=== PATIENT | female | born 1990 | race American Indian/Alaskan Native ===

== ENCOUNTER 2017-10-08 18:03 | Inpatient (IN) | payer MEDICAID ==
[2017-10-08] MEDS ORDERED: Lactated Ringers 500 ML IV ONE (18:26)
[2017-10-08] MEDS ORDERED: Carboprost Tromethamine 250 MCG/1 ML Amp IM PRN (18:26)
[2017-10-08] MEDS ORDERED: Methylergonovine 0.2 MG/1 ML Amp IM PRN (18:26)
[2017-10-08] MEDS ORDERED: Sodium Chloride 0.9% 10 ML Syringe FLUSH PRN (18:26)
[2017-10-08] MEDS ORDERED: Tranexamic Acid 1,000 MG in Sodium Chloride 0.9% 100 ML IV PRN (18:26)
[2017-10-08] MEDS ORDERED: Acetaminophen 325 MG Tab PO PRN ×2 (18:26)
[2017-10-08] MEDS ORDERED: Ondansetron 4 MG/2 ML SDV IV PRN (18:26)
[2017-10-08] MEDS ORDERED: Misoprostol 400 MCG (4 X 100 MCG TAB) RECTAL PRN (18:26)
[2017-10-08] MEDS ORDERED: Lidocaine 1% 30 ML SDV INJECT PRN (18:26)
[2017-10-08] MEDS: Misoprostol 25 MCG (1/4 of 100 MCG) Tab VAG PRN ×2 (19:32→23:58)
[2017-10-08] MEDS ORDERED: Nalbuphine 10 MG/1 ML Vial IM PRN (20:49)
[2017-10-09] MEDS ORDERED: Misoprostol 50 MCG (1/2 of 100 MCG) Tab VAG ONE ×2 (00:32→09:29)
[2017-10-09] MEDS: Misoprostol 50 MCG (1/2 of 100 MCG) Tab VAG PRN ×3 (05:10→22:18)
--- NOTE | 2017-10-09 09:51 | PN ---
DATE: 10/09/2017 SUBJECTIVE: The patient is having some contractions that she feels. The patient has had a headache on the posterior aspect of her head, seems to come and go. OBJECTIVE: heart tones in the 140s. Acceleration is seen. Tocometer does not read much for contractions. Blood pressure 138/67. Vaginal exam reveals her to be 1 cm, 25%. Ballotable vertex suspected. Cytotec 50 mcg placed after discussion with the patient ASSESSMENT AND PLAN: Intrauterine at 38 and 5/7 weeks, confirmed with 16 and 6-week ultrasound with gestational hypertension, GBS negative, G5, P4-0-0- 4, now status post Cytotec x2 with 50 mcg placed as above. We will continue to follow clinically and closely at this point in time. I suspect her headache is a tension-type headache with it in the back of her head, does not appear to be a preeclampsia-type headache. We will follow closely. [facility] /[id number]
--- NOTE | 2017-10-09 09:54 | PN ---
DATE: 10/08/2017 SUBJECTIVE: The patient does not feel much for contractions. OBJECTIVE: heart tones in the 140s range, felt to be reactive and reassuring. Blood pressure last one was 140s over 60s. Tocometer reveals no evidence of contraction. Vaginal exam reveals her to be finger tip, ballotable, 25% effaced, and 25 mcg Cytotec placed after discussion with the patient. Proper consent was obtained prior to the administration of Cytotec. ASSESSMENT: Intrauterine at 38 and 4/7 weeks, confirmed with 16 and 6/7 weeks' ultrasound, with gestational hypertension, group B Streptococcus negative, 5, para 4-0-0-4, who has had a history of gestational hypertension. PLAN: Cytotec as above. We will continue to follow clinically and closely. [facility] /[id number]
--- NOTE | 2017-10-09 10:09 | OBOUT ---
DATE: 10/08/2017 DATE AND TIME OF NST: 10/08/2017 at 1800 hours to 1820 hours. REASON FOR NST: 1. Intrauterine at 38-4/7 weeks. 2. Gestational hypertension. 3. GBS negative. 4. G5, P4-0-0-4, with updated information obtained today. 5. History of gestational hypertension with previous . NST INTERPRETATION: During this time period, the heart tone baseline is approximately 130 to 135 and there are at least two 15 x 15 beats per minute accelerations making this strip reactive. It is also noted to be reassuring. Tocometer reveals potential of 1 contraction. VITAL SIGNS: Blood pressure 137/79, recheck 141/87 and heart rate is between 78 and 81. ASSESSMENT: 1. Nonstress test, reactive and reassuring. 2. Tocometer with occasional contraction, minimally felt by the patient. 3. Gestational hypertension, suspected. The patient has had now 2 elevated blood pressures, 1 in the clinic and 1 here, and review of her records extensively in the past as well as further elicited history today does reveal she has added 2 pregnancies one 07/18/08, delivered male of approximately 40 weeks by spontaneous vaginal delivery in [place] with gestational hypertension. On 10/05/2015, delivered female by spontaneous vaginal delivery around 40 weeks. This would make her 5, para 4-0-0- 4. OBJECTIVE: Extremities: Update in terms of her exam with full h and p scanned in epic does reveal 1 to 2+ pitting edema to mid tibia. Deep tendon reflexes 2 to 3/4 bilaterally and symmetric in lower extremities. Psychiatric: Mood and affect are congruent. Judgment and insight intact. Skin: Without any cyanosis, clubbing, or jaundice. LABORATORY DATA: Preeclampsia/HELLP labs were felt to be within normal limits at the clinic. PLAN: I did discuss with the patient with gestational hypertension, recommendation to proceed with induction of labor. I did discuss with her using Cytotec. I did discuss risks, benefits, alternatives, and complications of this. Verbal and written consent obtained. Questions were answered. We will proceed with Cytotec induction of labor when able, and staff is available for this. This was discussed with the patient in detail. She understands and agrees. Also, I did discuss with her that she is to notify us if she has any severe headaches, visual changes, or upper abdominal pain. [facility] /[id number] MTDD
--- NOTE | 2017-10-09 11:22 | PN ---
DATE: 10/09/2017 SUBJECTIVE: The patient denies any headaches, visual changes, or upper abdominal pain. She has had a few occasional strong contractions. No other ones seem to be bothering her too much. OBJECTIVE: Vital Signs: Blood pressure 141/68, heart tones in the 140s to 150s. Abdomen: Tocometer reveals contractions currently at 4 minutes apart. Vaginal exam reveals her to be 1.5 cm, 50% to 60% effaced, -2 station, and vertex suspected. ASSESSMENT AND PLAN: Intrauterine , now at 38 and 5/7 weeks, confirmed with 16 and 6-week ultrasound with gestational hypertension, group B streptococcus negative, G5, P4-0-0-4, with blood pressure currently in the non- severe range. No signs or symptoms of preeclampsia. Most likely, we will proceed with Cytotec. Please see orders for further details. This was discussed with the patient. She understands and agrees. [facility] /[id number]
--- NOTE | 2017-10-09 11:24 | PN ---
DATE: 10/09/2017 SUBJECTIVE: The patient is still feeling her contractions. OBJECTIVE: heart tones in the 140s range. Some accelerations are seen. Tocometer reveals contractions anywhere from 2 to 4 minutes apart. Vaginal exam reveals her 1.5 cm, 50% to 60% effaced, -2 station, vertex suspected, and Cytotec 50 mcg vaginally placed after discussion with the patient. ASSESSMENT AND PLAN: Intrauterine at 38 and 5/7 weeks, complicated by gestational hypertension, group B streptococcus negative, G5, P4-0-0-4, now status post Cytotec x4, counting the dose as above. We will continue to follow clinically and closely thereafter. The patient understands and agrees with the above treatment and plan. [facility] /[id number]
[2017-10-09] MEDS: Oxytocin/Normal Saline 30 UNIT/500 ML BAG IV SCH (13:31)
[2017-10-09] MEDS: Lactated Ringers 1,000 ML IV SCH ×2 (13:32→14:12)
--- NOTE | 2017-10-09 14:56 | PN ---
DATE: 10/09/2017 SUBJECTIVE: The patient's contractions are still bearable. OBJECTIVE: Vaginal exam reveals her to be 1.5 cm, 56% effaced, -2 station, and vertex suspected. ASSESSMENT AND PLAN: Intrauterine , now 38 and 5/7 weeks with gestational hypertension, group B streptococcus negative, G5, P4-0-0-4. She denies any headaches, visual changes, or upper abdominal pain. She has almost had 200 mcg of Cytotec. We will start Pitocin augmentation, start at 2 up by 2 every 30 minutes and follow clinically and closely with monitoring. This was discussed with the patient. She understands and agrees with the above treatment plan. [facility] /[id number] MTDD
[2017-10-09] MEDS ORDERED: hydrOXYzine HCl 25 MG Tab PO ONE (22:41)
[2017-10-10] MEDS: Zolpidem 5 MG Tab PO SCH (00:59)
[2017-10-10] MEDS: Misoprostol 50 MCG (1/2 of 100 MCG) Tab VAG PRN ×2 (02:38→07:13)
--- NOTE | 2017-10-10 13:02 | PN ---
DATE: 10/10/2017 SUBJECTIVE: The patient is resting comfortably. She denies any headaches, visual changes, or upper abdominal pain. OBJECTIVE: Blood pressure 149/68. heart tones have been in the 150s with accelerations . Tocometer reveals contractions every 2 to 5 minutes. Vaginal exam reveals to be 1.5 to 2 cm, 60% effaced, -3 station, vertex suspected and 50 mcg of Cytotec placed vaginally after discussion with the patient. Recheck blood pressure was 155/74. ASSESSMENT: 1. Intrauterine now at 38 and 6/7 weeks, confirmed with 16 and 6/7- week ultrasound. 2. Gestational hypertension. No signs or symptoms of preeclampsia, but as she has been here for 2 nights, we will draw labs in the morning and repeat her PIH panel to make sure that she is not developing preeclampsia. 3. Decrease interval growth. This has been followed closely. It was discussed with her with her most recent ultrasound done on date of admission with final reading back yesterday. 4. Group B Streptococcus negative. 5. G5, P4-0-0-4. 6. History of gestational hypertension with previous . PLAN: The patient is now status post Cytotec x6 with doses of 25 to 50 mcg with 50 mcg was given as above, as well as some Pitocin augmentation that was stopped as there were concerns with monitoring heart tones during that time period. Labs in the later in the morning, we will continue with the Cytotec as above and follow clinically and closely. I did discuss with patient I will be leaving in the morning and Dr. Bah will be covering in my absence. This patient will be signed out to her at that time. The patient understands and agrees with the above treatment plan. [facility] /[id number]
--- NOTE | 2017-10-10 13:08 | PN ---
DATE: 10/10/2017 SUBJECTIVE: The patient slept through the night. She did get her 6th dose of Cytotec around 2:30. She denies any headaches, visual changes, or upper abdominal pain. OBJECTIVE: heart tones in the 135s to 150s range and accelerations noted. Tocometer reveals contractions every 2 to 5 minutes at times. Vital Signs: Blood pressure 141/67, heart rate 82, and temperature 98.6. Vaginal Exam: Reveals her to be 2 cm, 70% effaced, -2 station, and vertex suspected. With placement of 50 mcg of Cytotec, the cervix was 2 cm, and artificial rupture of membranes was done after discussion with the patient yielding copious amounts of clear fluid. LABORATORY INVESTIGATIONS: Labs today: White cell count 9.9, hemoglobin 12, and platelets 237. Urinalysis within normal limits. Urine protein-creatinine ratio pending as well as the rest of the PIH panel. ASSESSMENT: Intrauterine , now 38 and 6/7 weeks confirmed with a 16 and 6-week ultrasound with gestational hypertension being worked up for preeclampsia with decreased interval growth on an ultrasound earlier this week in a group B streptococcus negative, G5, P4-0-0-4, with history of gestational hypertension with previous pregnancies. PLAN: I did discuss with the patient status post artificial rupture of membranes. We will continue to follow clinically and closely. Dr. Bah will be covering in my absence. I will be signing out to her. The patient understands and agrees with the above treatment plan. [facility] /[id number]
--- NOTE | 2017-10-10 13:29 | PN ---
DATE: 10/09/2017 SUBJECTIVE: The patient has been feeling some of her contractions. OBJECTIVE: Pitocin decreased to 8 milliunits as she was having some hyperstimulation/tachy systole. Per nurse, vaginal exam per her reveals 1 cm dilation, -2 station, vertex suspected. Tocometer when reading has revealed contractions every couple of minutes at times. The patient is currently sitting in the rocking chair and difficulty reading on the tocometer. heart tones are audibly heard in the 140s to 150s. One acceleration is seen. ASSESSMENT: Intrauterine at 38 and 5/7 weeks, confirmed with 16 and 6/7 week ultrasound complicated by gestational hypertension, group B streptococcus negative status, G5, P4-0-0-4, with concerns with decreased interval growth. This was discussed with the patient once again today. Ultrasound final report did come back from radiologist from yesterday's ultrasound. Discussed the importance of continuing with induction and she understands and agrees. PLAN: We will try positional changes with the nurse today as well as continue Pitocin augmentation. She has had nearly 200 mcg Cytotec at this point in time. May re-evaluate in the near future. [facility] /[id number]
[2017-10-10] MEDS: Oxytocin/Normal Saline 30 UNIT/500 ML BAG IV SCH ×4 (14:05→20:10)
--- NOTE | 2017-10-10 14:16 | PCM.SN ---
- Free Text/Narrative Note: DOS: 10-10-[address] Roe 27yo @ term 38w6d being induced for transient Gestational HTN without pre-E , and possible growth restriction? AROM this morning by DCW. currently 4cm, vertex well applied. large amount of clear fluid noted with my exam. feeling cxns much more now IUPC placed as pt would like to consider intrathecal. Will start pitocin augmentation after discussion with patient. anticipate likely vaginal delivery. noted from [facility], [facility], and US reviewed. also discussed with Dr. Mccall. further management pending clinical course in labor. [facility]
[2017-10-10] MEDS: Lactated Ringers 1,000 ML IV SCH ×3 (14:45→22:07)
[2017-10-10] MEDS ORDERED: fentaNYL 100 MCG/2 ML SDV ONE (15:20)
[2017-10-10] MEDS ORDERED: Bupivacaine 0.75%/D5W 2 ML Amp ONE (15:20)
[2017-10-10] MEDS ORDERED: EPINEPHrine 1 MG/ML SDV ONE (15:21)
--- NOTE | 2017-10-10 15:57 | PCM.PRNOTE ---
- Free Text/Narrative Note: Requested to provide analgesia to full term patient in severe pain. Upon entering the room, patient is supine in bed complaining of severe abdominal/ pelvic pain and discomfort. Procedure was discussed with patient including adverse outcomes and expectations. Pt consented to analgesia, SAB/IT. Pt placed into a sitting position. Landmarks for SAB/IT were identified and marked. Hands were washed and appropriate PPE was applied. Back was prepped with betadine x3. A sterile, transparent, fenestrated drape was applied. Excess betadine was removed. Using 3 mL of a 1% lidocaine solution, a skin wheel was placed at the L3/L4 interspace. A 24 ga (4 inch) Pencan spinal needle was inserted until positive for CSF. Negative for heme or paresthesias. Injected fentanyl 30 mcg, sufentanil 25 mcg, and 12.75 mg of a 0.75% bupivacaine solution with an epi wash. Pt was placed left lateral position for approximately 20 minutes. There were zero complications or adverse outcomes. Will continue to monitor. Procedure Date & Time: 10/10/17 [id number]
[2017-10-10] MEDS ORDERED: Citric Acid/Sodium Citrate Solution 30 ML Cup PO ONE (17:59)
[2017-10-10] MEDS ORDERED: ceFAZolin 2 GM in Premix Bag 1 BAG IV ONE (17:59)
[2017-10-10] MEDS ORDERED: Oxytocin/Normal Saline 60 UNIT/1,000 ML BAG ONE (18:00)
[2017-10-10] MEDS ORDERED: Acetaminophen/oxyCODONE 325-5 MG Tab PO PRN (20:25)
[2017-10-10] MEDS ORDERED: ePHEDrine 50 MG/ML SDV IVPUSH PRN (20:25)
[2017-10-10] MEDS ORDERED: diphenhydrAMINE 50 MG/ML SDV IVPUSH PRN (20:25)
[2017-10-10] MEDS ORDERED: Naloxone 2 MG/2 ML Syringe IVPUSH PRN (20:25)
[2017-10-10] MEDS ORDERED: Ketorolac 30 MG/ML SDV IVPUSH ONE (21:20)
[2017-10-11] MEDS: Simethicone 80 MG Tab.Chew PO SCH ×5 (00:46→20:12)
[2017-10-11] MEDS: Zolpidem 5 MG Tab PO SCH ×2 (00:46→23:43)
--- NOTE | 2017-10-11 02:14 | OR ---
DATE: 10/10/2017 PROCEDURE PERFORMED: Primary low transverse section. LIEUTENANT BALLISTICS: Eladio Fleming MD ESTIMATED BLOOD LOSS: 600 mL. FLUIDS: 500 mL. URINE OUTPUT: During procedure, 100 mL without hematuria. COMPLICATIONS: None. PREOPERATIVE DIAGNOSES: 1. A 27-year-old 5, para 4-0-0-4 at 38 and 6/7 weeks' gestation with non-reassuring heart tone pattern, arrest of labor, persistent occiput posterior position, unsuccessful induction. 2. Intermittent gestational hypertension. 3. Concern regarding possible decreased intrauterine growth. 4. Group B Streptococcus negative. 5. O positive blood type. 6. Rubella immune. POSTOPERATIVE DIAGNOSES: 1. A 27-year-old 5, now para 5-0-0-5 at 38 and 6/7 weeks' gestation with non-reassuring heart tone pattern, arrest of labor, persistent occiput posterior position, unsuccessful induction. 2. Intermittent gestational hypertension. 3. Concern regarding possible decreased intrauterine growth. 4. Group B Streptococcus negative. 5. O positive blood type. 6. Rubella immune. 7. Confirmation of occiput posterior presentation. 8. Viable female . The weight 6 pounds 10 ounces. scores 8 and 9. FINDINGS: This 27-year-old 5, para 4-0-0-4, was admitted on 10/08/[address] Roe at 38 and 4/7 weeks' gestation for the above reasons as noted and underwent attempt at induction, which was unsuccessful as noted. Please see progress notes for details. She was brought down to the OR and had a Plasencia catheter in place. She was prepped and draped in the usual sterile manner after her spinal anesthesia had been placed. heart tones were checked during her prep intermittently and were found to be reassuring. Her Pitocin had been stopped prior to coming down to the OR. A time-out was performed in my presence. A purple surgical marker was used to dang our intended incision site. A scalpel was used for the skin incision, and this was brought down through the subcutaneous tissue with electrocautery to the fascia, which was divided transversely. Superior and inferior fascial flaps were developed with sharp and blunt dissection. The rectus was identified and divided in the midline. The peritoneum was elevated by Dr. Fleming with Alyssa. Then, the peritoneum was entered bluntly and opened until we had excellent visualization of the lower uterine segment. The extra large Joseph retractor was placed without difficulty. A bladder flap was developed with sharp and blunt dissection. A stab incision was made into the lower uterine segment. This was carried laterally with blunt dissection. The baby was noted to be in an OP presentation, and lips and nose were presenting. With some difficulty, we were able to elevate the vertex up and flex the head and deliver the vertex through the incision. The baby was delivered, and the cord was noted to be wrapped and knotted around the baby's ankles. The cord was doubly clamped and cut, and the baby was carried to the warmer by Dr. Fleming. The baby was suctioned and dried, later found to have scores of 8 and 9 with a weight of 6 pounds 10 ounces. This viable female infant was cared and attended to by nursing staff and did well. A cord blood sample was obtained, and a 3- vessel cord was noted. The placenta was removed from the uterus and inspected later by me and found to be complete, intact with a normal cord insertion and 3- vessel cord as noted. Meanwhile, Dr. Fleming cleared the placenta out of remaining membranes and placental remnants. Placenta appeared to be completely removed, and the uterus was clean and dry. The incision edges were grasped with Rhodes forceps. The left edge was noted to extend slightly down into the sulcus and was bleeding fairly briskly. The incision was closed with a running locking 0 Vicryl suture with good results. Then several hemostatic figure-of- eight and interrupted stitches were placed for hemostasis by both myself and Dr. Fleming. We did note bleeding in the left corner of the incision, and the vessel was grasped with hemostat by Dr. Fleming and subsequently tied off and a [id number] suture placed by him with excellent hemostasis. A second imbricating layer was placed in the uterus by me. Examination of the incision then showed it to be hemostatic. A few small areas that were oozing were electrocauterized. We did place some Surgicel in the left corner as a precaution. We then examined the gutters, and they were dry and cleared of all clots. We then removed the retractor and examined the posterior cul-de-sac and fornix, which were clear of any sign of active bleeding or blood clot. The uterus, ovaries, and tubes appeared within normal limits. The bladder appeared intact, and the incision appeared dry. The Plasencia was noted to continue draining urine throughout the procedure, and there was no sign of obvious hematuria. Muscle and peritoneum layers were brought together with interrupted stitches of leftover suture. Fascia was brought together with running #1 PDS loop suture. The subcutaneous space was examined, and any bleeders were electrocauterized. Skin edges were brought together with rocky. The patient tolerated the procedure well, and there were no intraoperative complications. All counts were correct. The patient was transferred to recovery in excellent condition. [facility] /[id number]
[2017-10-11] MEDS ORDERED: Ketorolac 30 MG/ML SDV IVPUSH SCH (03:00)
[2017-10-11] MEDS: Ketorolac 30 MG/ML SDV IVPUSH SCH ×3 (04:00→15:56)
[2017-10-11] MEDS: Lactated Ringers 1,000 ML IV SCH (06:03)
--- NOTE | 2017-10-11 09:10 | PN ---
DATE: 10/10/2017 REASON FOR NOTE: Need for primary section. FINDINGS: This 27-year-old 5, para 4-0-0-4, currently at 38 and 6/7 weeks' gestation, who was admitted by Dr. Roe 2 days ago for intermittent gestational hypertension. She is known group B strep negative. She was followed by Maternal- Medicine for small for gestational age; however, did have a normal serial growth. He did start Cytotec and continued that for 2 days. Subsequently, she did not go into labor, and he had evaluated her this morning and artificial rupture of membranes was carried out when her cervix was 2 cm dilated and she was not having an active labor pattern. Her preeclampsia labs have been within normal limits. The heart tones at that time had apparently been reassuring throughout. She had a decreased fluid volume concern at one time. However, her latest DOMINGUEZ had been normal, but there was some concern about growth. Ultrasound testing was done on Sunday; please see those notes for details. Today, we did proceed with Pitocin augmentation of her labor with IUPC in place. She received an intrathecal. However, she developed non-reassuring heart tone tracing showing late deceleration that became repetitive in nature. She did maintain a tracing showing variability present, though the baseline did become more elevated. At this time, her Pitocin was turned off. Recheck of her cervix showed it remains at 6+. The patient is not having any urge to push at this time. We have had oxygen on her and have tried change in position without any significant change or improvement in the heart tones. This has been persistent and discussed with the patient and have elected to proceed to primary low-transverse section. I reviewed the procedure with her. Alternatives, risks and benefits, and the various options were reviewed with her and she does wish to proceed with a section. We will plan on spinal anesthesia if heart tones allow it. We will plan on a Pfannenstiel incision if able. She does understand that the risks include, but were not limited to, infection and the need for possible antibiotics, possible risk of hemorrhage in need of blood transfusion with its inherent risks, the possibility of blood clotting, DVT, PE, and the use of early ambulation, LYNNETTE hose, SCDs, etc., to help minimize this risk, possible injury to maternal organs, fetus, etc., the possible need for further surgery, reaction to anesthesia, etc. All of her questions have been answered and she does wish to proceed as noted. Consent form was signed. We will plan on Ancef 2 g IV. Type and screen has already been done and we will go with that for the time being. Dr. Fleming will be coming for assist and Dr. Alfaro will also be helping for assist and assistance for nursing staff if necessary. Further management pending her clinical course. [facility] /[id number]
--- NOTE | 2017-10-11 10:59 | PCM.SN ---
- Free Text/Narrative Note: DOS: 10-11-17 POD#1 s/p PLTCS for POP position, FTP and non-reassuring status doing well. excellent urine output. Plasencia still in. no hematuria. no vomiting, eating well. Pain controlled--primarily incisional and some groin discomfort Has LYNNETTE cerrato and SCDs on nursing enjoying baby girl/bonding nursing labs reviewed. hgb 10.4 PLT wnl Afebrile, VSS PT consult for carpal tunnel sx--reviewed and OP also approved/signed. All questions answered. continue current care family happy with care and plan [facility]
[2017-10-11] MEDS ORDERED: fentaNYL 100 MCG/2 ML SDV ITHECAL ONE (12:29)
[2017-10-11] MEDS ORDERED: fentaNYL 100 MCG/2 ML SDV IV ONE (12:29)
[2017-10-11] MEDS ORDERED: EPINEPHrine 1 MG/ML SDV IV ONE (12:29)
[2017-10-11] MEDS ORDERED: Naloxone 2 MG/2 ML Syringe IV ONE (12:29)
[2017-10-11] MEDS ORDERED: Morphine PF 1 MG/ML Amp ONE (12:29)
[2017-10-11] MEDS ORDERED: Lactated Ringers 1,000 ML IV ONE (12:29)
[2017-10-11] MEDS ORDERED: Bupivacaine 0.75%/D5W 2 ML Amp INJECT ONE ×2 (12:29)
[2017-10-11] MEDS: Acetaminophen/oxyCODONE 325-5 MG Tab PO PRN ×2 (13:40→20:13)
[2017-10-11] MEDS: Docusate Sodium 100 MG Cap PO PRN (20:12)
[2017-10-12] MEDS: Ibuprofen 800 MG Tab PO PRN ×3 (00:12→21:26)
[2017-10-12] MEDS: Acetaminophen/oxyCODONE 325-5 MG Tab PO PRN ×6 (00:13→21:26)
[2017-10-12] MEDS: Simethicone 80 MG Tab.Chew PO SCH ×4 (08:36→21:25)
[2017-10-12] MEDS: Docusate Sodium 100 MG Cap PO PRN ×2 (12:45→21:25)
[2017-10-13] MEDS: Acetaminophen/oxyCODONE 325-5 MG Tab PO PRN ×2 (01:29→05:54)
[2017-10-13] MEDS: Ibuprofen 800 MG Tab PO PRN (05:53)
--- NOTE | 2017-10-13 08:06 | PCM.PNPP ---
- General Info Date of Service: 10/13/17 (PPD/POD # 3 S/P Primary LTC/S) Functional Status: Reports: Pain Controlled, Tolerating Diet, Ambulating, Urinating - Review of Systems General: Reports: No Symptoms HEENT: Reports: No Symptoms Pulmonary: Reports: No Symptoms Cardiovascular: Reports: No Symptoms Gastrointestinal: Reports: No Symptoms Genitourinary: Reports: No Symptoms Musculoskeletal: Reports: No Symptoms Skin: Reports: No Symptoms Neurological: Reports: No Symptoms Psychiatric: Reports: No Symptoms - General Info Date of Service: 10/13/17 (PPD/POD # 3 S/P Primary LTC/S) - Patient Data Vital Signs - Most Recent: Last Vital Signs Temp 97.5 F 10/12/17 17:06 Pulse 100 10/12/17 17:06 Resp 18 10/12/17 17:06 BP 144/68 H 10/12/17 17:06 Pulse Ox 98 10/12/17 17:06 Weight - Most Recent: 285 lb I&O - Last 24 Hours: Intake & Output 10/12/17 10/13/17 10/13/17 22:59 06:59 14:59 Intake Total 440 Balance 440 Med Orders - Current: Current Medications Acetaminophen (Tylenol) 650 mg PO Q4H PRN PRN Reason: Pain/Fever Last Admin: 10/08/17 23:57 Dose: 650 mg Carboprost Tromethamine (Hemabate Ds) 250 mcg IM ASDIRECTED PRN PRN Reason: HEMORRHAGE Diphenhydramine HCl (Benadryl) 25 mg IVPUSH Q6H PRN PRN Reason: Itching or Nausea Docusate Sodium (Colace) 100 mg PO Q12H PRN PRN Reason: Constipation Last Admin: 10/12/17 21:25 Dose: 100 mg Ephedrine Sulfate (Ephedrine Sulfate) 5 mg IVPUSH SEECOMMENT PRN PRN Reason: Other Lactated Ringer's (Ringers, Lactated) 1,000 mls @ 125 mls/hr IV ASDIRECTED ELISE Last Infusion: 10/11/17 14:26 Dose: Infused Oxytocin/Sodium Chloride (Pitocin In Ns 30 Unit/500 Ml) 30 unit in 500 mls @ 2 mls/hr IV TITRATE ELISE; Protocol Last Titration: 10/09/17 21:10 Dose: 0 munits/min, 0 mls/hr Tranexamic Acid 1,000 mg/ (Sodium Chloride) 110 mls @ 660 mls/hr IV ONETIME PRN PRN Reason: Bleeding Oxytocin/Sodium Chloride (Pitocin In Ns 30 Unit/500 Ml) 30 unit in 500 mls @ 2 mls/hr IV TITRATE ELISE; Protocol Last Titration: 10/10/17 22:30 Dose: 0 mls/hr Ibuprofen (Motrin) 800 mg PO Q8H PRN PRN Reason: mild pain or fever Last Admin: 10/13/17 05:53 Dose: 800 mg Lidocaine HCl (Xylocaine-Mpf 1%) 10 ml INJECT ASDIRECTED PRN PRN Reason: Perineal Repair Methylergonovine Maleate (Methergine) 0.2 mg IM ASDIRECTED PRN PRN Reason: Hemorrhage Misoprostol (Cytotec) 800 mcg RECTAL ASDIRECTED PRN PRN Reason: Hemorrhage Misoprostol (Cytotec) 25 mcg VAG Q4H PRN PRN Reason: cervical ripening Last Admin: 10/08/17 19:32 Dose: 25 mcg Misoprostol (Cytotec) 50 mcg VAG Q4H PRN PRN Reason: cervical ripening Last Admin: 10/10/17 07:13 Dose: 50 mcg Nalbuphine HCl (Nubain) 20 mg IM Q3H PRN PRN Reason: Pain Last Admin: 10/10/17 11:45 Dose: 20 mg Naloxone HCl (Narcan) 0.1 mg IVPUSH SEECOMMENT PRN PRN Reason: Respiratory Depression Ondansetron HCl (Zofran) 4 mg IV Q4H PRN PRN Reason: Nausea/Vomiting Last Admin: 10/10/17 15:10 Dose: 4 mg Oxycodone/Acetaminophen (Percocet 325-5 Mg) 1 tab PO Q4H PRN PRN Reason: Pain (moderate 4-6) Oxycodone/Acetaminophen (Percocet 325-5 Mg) 2 tab PO Q4H PRN PRN Reason: Pain (moderate 4-6) Last Admin: 10/13/17 05:54 Dose: 2 tab Simethicone (Simethicone) 160 mg PO QID ELISE Last Admin: 10/12/17 21:25 Dose: 160 mg Sodium Chloride (Saline Flush) 10 ml FLUSH ASDIRECTED PRN PRN Reason: Keep Vein Open Zolpidem Tartrate (Ambien) 5 mg PO BEDTIME ELISE Last Admin: 10/11/17 23:43 Dose: Not Given Discontinued Medications Bupivacaine HCl/Dextrose (Marcaine 0.75% Spinal) Confirm Administered Dose 2 ml .ROUTE .STK-MED ONE Stop: 10/10/17 15:21 Last Admin: 10/11/17 08:18 Dose: Not Given Bupivacaine HCl/Dextrose (Marcaine 0.75% Spinal) 1.7 ml INJECT .STK-MED ONE Stop: 10/11/17 12:30 Bupivacaine HCl/Dextrose (Marcaine 0.75% Spinal) 2 ml INJECT .STK-MED ONE Stop: 10/11/17 12:30 Citric Acid/Sodium Citrate (Bicitra Solution) 30 ml PO ONETIME ONE Stop: 10/10/17 18:00 Last Admin: 10/10/17 18:00 Dose: 30 ml Epinephrine HCl (Adrenalin) Confirm Administered Dose 1 mg .ROUTE .STK-MED ONE Stop: 10/10/17 15:22 Last Admin: 10/11/17 08:18 Dose: Not Given Epinephrine HCl (Adrenalin) 0.1 mg IV .STK-MED ONE Stop: 10/11/17 12:30 Fentanyl (Sublimaze) Confirm Administered Dose 100 mcg .ROUTE .STK-MED ONE Stop: 10/10/17 15:21 Last Admin: 10/11/17 08:18 Dose: Not Given Fentanyl (Sublimaze) 30 mcg ITHECAL .STK-MED ONE Stop: 10/11/17 12:30 Fentanyl (Sublimaze) 20 mcg IV .STK-MED ONE Stop: 10/11/17 12:30 Hydroxyzine HCl (Atarax) 50 mg PO ONETIME ONE Stop: 10/09/17 22:42 Last Admin: 10/09/17 23:14 Dose: 50 mg Lactated Ringer's (Ringers, Lactated) 500 mls @ 500 mls/hr IV .BOLUS ONE Stop: 10/08/17 19:25 Last Admin: 10/09/17 02:01 Dose: 500 mls/hr Cefazolin Sodium/Dextrose 2 gm (/ Premix) 50 mls @ 100 mls/hr IV ONETIME ONE Stop: 10/10/17 18:28 Last Admin: 10/10/17 18:40 Dose: 100 mls/hr Oxytocin/Sodium Chloride (Pitocin In Ns 30 Unit/500 Ml) Confirm Administered Dose 60 unit in 1,000 mls @ as directed .ROUTE .STK-MED ONE Stop: 10/10/17 18:01 Lactated Ringer's (Ringers, Lactated) 1,000 mls @ as directed IV .STK-MED ONE Stop: 10/11/17 12:30 Ketorolac Tromethamine (Toradol) 15 mg IVPUSH Q6H ELISE Stop: 10/11/17 15:01 Ketorolac Tromethamine (Toradol) 30 mg IVPUSH ONETIME ONE Stop: 10/10/17 21:21 Last Admin: 10/10/17 21:46 Dose: 30 mg Ketorolac Tromethamine (Toradol) 15 mg IVPUSH Q6H ELISE Stop: 10/11/17 16:01 Last Admin: 10/11/17 15:56 Dose: 15 mg Lidocaine HCl (Xylocaine-Mpf 1%) 3 ml INJECT .STK-MED ONE Stop: 10/11/17 12:30 Misoprostol (Cytotec) 50 mcg VAG ONETIME ONE Stop: 10/09/17 00:33 Last Admin: 10/09/17 00:47 Dose: 50 mcg Misoprostol (Cytotec) 50 mcg VAG Q4H PRN PRN Reason: cervical ripening Last Admin: 10/09/17 09:39 Dose: 50 mcg Misoprostol (Cytotec) 50 mcg VAG ONETIME ONE Stop: 10/09/17 09:30 Last Admin: 10/09/17 14:53 Dose: Not Given Morphine Sulfate (Duramorph Pf) 0.2 mg .XX .STK-MED ONE Stop: 10/11/17 12:30 Naloxone HCl (Narcan) 1 mg IV .STK-MED ONE Stop: 10/11/17 12:30 Sufentanil Citrate (Sufenta) Confirm Administered Dose 50 mcg .ROUTE .STK-MED ONE Stop: 10/10/17 15:22 Last Admin: 10/11/17 08:18 Dose: Not Given Sufentanil Citrate (Sufenta) 25 mcg ITHECAL .STK-MED ONE Stop: 10/11/17 12:30 - Interaction Infant Disposition, : in Room with Family Infant Interaction: Holding Feeding: Breastfed ; Nursed Well Support Person: Significant Other - Recovery Exam Fundal Tone: Firm Fundal Level: 2 Fingerbreadths Below Umbilicus Fundal Placement: Midline Lochia Amount: Small Lochia Color: Rubra/Red Perineum Description: Intact, Minimal Bruising/Swelling Episiotomy/Laceration: None Bladder Status: Nonpalpable Urinary Elimination: Indwelling Catheter - Exam General: Alert, Oriented, Cooperative, No Acute Distress HEENT: Pupils Equal, Pupils Reactive, EOMI, Mucous Membr. Moist/[place] Neck: Supple Lungs: Clear to Auscultation, Normal Respiratory Effort Cardiovascular: Regular Rate, Regular Rhythm, No Murmurs GI/Abdominal Exam: Normal Bowel Sounds, Soft, Non-Tender, No Distention Extremities: Normal Inspection, Normal Range of Motion, Non-Tender, No Pedal Edema Skin: Warm, Dry, Intact Wound/Incisions: Healing Well, Dressing Dry and Intact, No Drainage Neurological: No New Focal Deficit, Normal Gait, Normal Speech, Normal Tone Psy/Mental Status: Alert, Normal Affect, Normal Mood - Problem List Review Problem List Initiated/Reviewed/Updated: Yes - My Orders Last 24 Hours: My Active Orders 10/13/17 07:58 Ready for Discharge [RC] PER UNIT ROUTINE - Assessment Assessment:: PPD # 3 S/P Primary LTC/S Doing well - Plan Plan:: Discharge to home Follow-up with Dr. Bah next week Ibuprofen and Percocet for pain control
--- NOTE | 2017-10-13 08:14 | PCM.PNPP ---
- General Info Date of Service: 10/12/17 (PPD/POD # 2 S/P Primary LTC/S) Functional Status: Reports: Pain Controlled, Tolerating Diet, Ambulating, Urinating - Review of Systems General: Reports: No Symptoms HEENT: Reports: No Symptoms Pulmonary: Reports: No Symptoms Cardiovascular: Reports: No Symptoms Gastrointestinal: Reports: No Symptoms Genitourinary: Reports: No Symptoms Musculoskeletal: Reports: No Symptoms Skin: Reports: No Symptoms Neurological: Reports: No Symptoms Psychiatric: Reports: No Symptoms - General Info Date of Service: 10/12/17 (PPD/POD # 2 S/P Primary LTC/S) - Patient Data Vital Signs - Most Recent: Last Vital Signs Temp 97.5 F 10/12/17 17:06 Pulse 100 10/12/17 17:06 Resp 18 10/12/17 17:06 BP 144/68 H 10/12/17 17:06 Pulse Ox 98 10/12/17 17:06 Weight - Most Recent: 285 lb I&O - Last 24 Hours: Intake & Output 10/12/17 10/13/17 10/13/17 22:59 06:59 14:59 Intake Total 440 Balance 440 Med Orders - Current: Current Medications Acetaminophen (Tylenol) 650 mg PO Q4H PRN PRN Reason: Pain/Fever Last Admin: 10/08/17 23:57 Dose: 650 mg Carboprost Tromethamine (Hemabate Ds) 250 mcg IM ASDIRECTED PRN PRN Reason: HEMORRHAGE Diphenhydramine HCl (Benadryl) 25 mg IVPUSH Q6H PRN PRN Reason: Itching or Nausea Docusate Sodium (Colace) 100 mg PO Q12H PRN PRN Reason: Constipation Last Admin: 10/12/17 21:25 Dose: 100 mg Ephedrine Sulfate (Ephedrine Sulfate) 5 mg IVPUSH SEECOMMENT PRN PRN Reason: Other Lactated Ringer's (Ringers, Lactated) 1,000 mls @ 125 mls/hr IV ASDIRECTED ELISE Last Infusion: 10/11/17 14:26 Dose: Infused Oxytocin/Sodium Chloride (Pitocin In Ns 30 Unit/500 Ml) 30 unit in 500 mls @ 2 mls/hr IV TITRATE ELISE; Protocol Last Titration: 10/09/17 21:10 Dose: 0 munits/min, 0 mls/hr Tranexamic Acid 1,000 mg/ (Sodium Chloride) 110 mls @ 660 mls/hr IV ONETIME PRN PRN Reason: Bleeding Oxytocin/Sodium Chloride (Pitocin In Ns 30 Unit/500 Ml) 30 unit in 500 mls @ 2 mls/hr IV TITRATE ELISE; Protocol Last Titration: 10/10/17 22:30 Dose: 0 mls/hr Ibuprofen (Motrin) 800 mg PO Q8H PRN PRN Reason: mild pain or fever Last Admin: 10/13/17 05:53 Dose: 800 mg Lidocaine HCl (Xylocaine-Mpf 1%) 10 ml INJECT ASDIRECTED PRN PRN Reason: Perineal Repair Methylergonovine Maleate (Methergine) 0.2 mg IM ASDIRECTED PRN PRN Reason: Hemorrhage Misoprostol (Cytotec) 800 mcg RECTAL ASDIRECTED PRN PRN Reason: Hemorrhage Misoprostol (Cytotec) 25 mcg VAG Q4H PRN PRN Reason: cervical ripening Last Admin: 10/08/17 19:32 Dose: 25 mcg Misoprostol (Cytotec) 50 mcg VAG Q4H PRN PRN Reason: cervical ripening Last Admin: 10/10/17 07:13 Dose: 50 mcg Nalbuphine HCl (Nubain) 20 mg IM Q3H PRN PRN Reason: Pain Last Admin: 10/10/17 11:45 Dose: 20 mg Naloxone HCl (Narcan) 0.1 mg IVPUSH SEECOMMENT PRN PRN Reason: Respiratory Depression Ondansetron HCl (Zofran) 4 mg IV Q4H PRN PRN Reason: Nausea/Vomiting Last Admin: 10/10/17 15:10 Dose: 4 mg Oxycodone/Acetaminophen (Percocet 325-5 Mg) 1 tab PO Q4H PRN PRN Reason: Pain (moderate 4-6) Oxycodone/Acetaminophen (Percocet 325-5 Mg) 2 tab PO Q4H PRN PRN Reason: Pain (moderate 4-6) Last Admin: 10/13/17 05:54 Dose: 2 tab Simethicone (Simethicone) 160 mg PO QID ELISE Last Admin: 10/12/17 21:25 Dose: 160 mg Sodium Chloride (Saline Flush) 10 ml FLUSH ASDIRECTED PRN PRN Reason: Keep Vein Open Zolpidem Tartrate (Ambien) 5 mg PO BEDTIME ELISE Last Admin: 10/11/17 23:43 Dose: Not Given Discontinued Medications Bupivacaine HCl/Dextrose (Marcaine 0.75% Spinal) Confirm Administered Dose 2 ml .ROUTE .STK-MED ONE Stop: 10/10/17 15:21 Last Admin: 10/11/17 08:18 Dose: Not Given Bupivacaine HCl/Dextrose (Marcaine 0.75% Spinal) 1.7 ml INJECT .STK-MED ONE Stop: 10/11/17 12:30 Bupivacaine HCl/Dextrose (Marcaine 0.75% Spinal) 2 ml INJECT .STK-MED ONE Stop: 10/11/17 12:30 Citric Acid/Sodium Citrate (Bicitra Solution) 30 ml PO ONETIME ONE Stop: 10/10/17 18:00 Last Admin: 10/10/17 18:00 Dose: 30 ml Epinephrine HCl (Adrenalin) Confirm Administered Dose 1 mg .ROUTE .STK-MED ONE Stop: 10/10/17 15:22 Last Admin: 10/11/17 08:18 Dose: Not Given Epinephrine HCl (Adrenalin) 0.1 mg IV .STK-MED ONE Stop: 10/11/17 12:30 Fentanyl (Sublimaze) Confirm Administered Dose 100 mcg .ROUTE .STK-MED ONE Stop: 10/10/17 15:21 Last Admin: 10/11/17 08:18 Dose: Not Given Fentanyl (Sublimaze) 30 mcg ITHECAL .STK-MED ONE Stop: 10/11/17 12:30 Fentanyl (Sublimaze) 20 mcg IV .STK-MED ONE Stop: 10/11/17 12:30 Hydroxyzine HCl (Atarax) 50 mg PO ONETIME ONE Stop: 10/09/17 22:42 Last Admin: 10/09/17 23:14 Dose: 50 mg Lactated Ringer's (Ringers, Lactated) 500 mls @ 500 mls/hr IV .BOLUS ONE Stop: 10/08/17 19:25 Last Admin: 10/09/17 02:01 Dose: 500 mls/hr Cefazolin Sodium/Dextrose 2 gm (/ Premix) 50 mls @ 100 mls/hr IV ONETIME ONE Stop: 10/10/17 18:28 Last Admin: 10/10/17 18:40 Dose: 100 mls/hr Oxytocin/Sodium Chloride (Pitocin In Ns 30 Unit/500 Ml) Confirm Administered Dose 60 unit in 1,000 mls @ as directed .ROUTE .STK-MED ONE Stop: 10/10/17 18:01 Lactated Ringer's (Ringers, Lactated) 1,000 mls @ as directed IV .STK-MED ONE Stop: 10/11/17 12:30 Ketorolac Tromethamine (Toradol) 15 mg IVPUSH Q6H ELISE Stop: 10/11/17 15:01 Ketorolac Tromethamine (Toradol) 30 mg IVPUSH ONETIME ONE Stop: 10/10/17 21:21 Last Admin: 10/10/17 21:46 Dose: 30 mg Ketorolac Tromethamine (Toradol) 15 mg IVPUSH Q6H ELISE Stop: 10/11/17 16:01 Last Admin: 10/11/17 15:56 Dose: 15 mg Lidocaine HCl (Xylocaine-Mpf 1%) 3 ml INJECT .STK-MED ONE Stop: 10/11/17 12:30 Misoprostol (Cytotec) 50 mcg VAG ONETIME ONE Stop: 10/09/17 00:33 Last Admin: 10/09/17 00:47 Dose: 50 mcg Misoprostol (Cytotec) 50 mcg VAG Q4H PRN PRN Reason: cervical ripening Last Admin: 10/09/17 09:39 Dose: 50 mcg Misoprostol (Cytotec) 50 mcg VAG ONETIME ONE Stop: 10/09/17 09:30 Last Admin: 10/09/17 14:53 Dose: Not Given Morphine Sulfate (Duramorph Pf) 0.2 mg .XX .STK-MED ONE Stop: 10/11/17 12:30 Naloxone HCl (Narcan) 1 mg IV .STK-MED ONE Stop: 10/11/17 12:30 Sufentanil Citrate (Sufenta) Confirm Administered Dose 50 mcg .ROUTE .STK-MED ONE Stop: 10/10/17 15:22 Last Admin: 10/11/17 08:18 Dose: Not Given Sufentanil Citrate (Sufenta) 25 mcg ITHECAL .STK-MED ONE Stop: 10/11/17 12:30 - Interaction Infant Disposition, : in Room with Family Infant Interaction: Holding Feeding: Breastfed ; Nursed Well Support Person: Significant Other - Recovery Exam Fundal Tone: Firm Fundal Level: 2 Fingerbreadths Below Umbilicus Fundal Placement: Midline Lochia Amount: Small Lochia Color: Rubra/Red Perineum Description: Intact, Minimal Bruising/Swelling Episiotomy/Laceration: None Bladder Status: Nonpalpable Urinary Elimination: Indwelling Catheter - Exam General: Alert, Oriented, Cooperative, No Acute Distress HEENT: Pupils Equal, Pupils Reactive, EOMI Neck: Supple Lungs: Clear to Auscultation, Normal Respiratory Effort Cardiovascular: Regular Rate, Regular Rhythm, No Murmurs GI/Abdominal Exam: Normal Bowel Sounds, Soft, Non-Tender, No Distention Extremities: Normal Inspection, Normal Range of Motion, Non-Tender, No Pedal Edema, Normal Capillary Refill Skin: Warm, Dry, Intact Wound/Incisions: Healing Well, Dressing Dry and Intact, No Drainage Neurological: No New Focal Deficit, Normal Gait, Normal Speech, Normal Tone Psy/Mental Status: Alert, Normal Affect, Normal Mood - Problem List Review Problem List Initiated/Reviewed/Updated: Yes - My Orders Last 24 Hours: My Active Orders 10/13/17 07:58 Ready for Discharge [RC] PER UNIT ROUTINE - Assessment Assessment:: PPD # 2 S/P Primary LTC/S Doing well - Plan Plan:: Plan for discharge tomorrow Continue present care.
[2017-10-13] MEDS: Simethicone 80 MG Tab.Chew PO SCH (09:42)
[2017-10-13] MEDS: Docusate Sodium 100 MG Cap PO PRN (09:43)
[2017-10-13 10:03] VITALS: BP 139/71
[2017-10-13] MEDS ORDERED: Oxytocin/Normal Saline 30 UNIT/500 ML BAG IV ONE (11:59)
--- NOTE | 2017-10-13 16:33 | DISCH ---
INDICATION FOR ADMISSION: Ms. Miles is a 27-year-old, 5, para 4-0-0-4 female, who was admitted on 10/08/[address] Isaiah Roe at 38 and 4/7 weeks' gestation because of intermittent gestational hypertension, concerned about decreased intrauterine growth. After admission, she was given Pitocin. She had artificial rupture of membranes, and with non-reassuring heart tone pattern, arrest of labor, persistent occiput posterior position with the induction being unsuccessful, a primary section was called and accomplished by Dr. Oxana Bah. The patient tolerated the procedure quite well. She had delivery of a viable female infant weighing 6 pounds 10 ounces. Length was 18-3/4 with scores of 8 at 1 minute, 9 at 5 minutes. She went from the operating room to recovery and to the OB floor. She tolerated the rest of her hospital stay quite well. She is afebrile. Vital signs are stable. She tolerated her diet well and ambulated quite well. No complications occurred throughout her stay. She was discharged to home on postop day #3. LABORATORY AND DIAGNOSTIC STUDIES: On 10/08/2017; WBC 9.3, hemoglobin 12.6, hematocrit 38.1, and platelet count 245,000. Toxicology screen was negative. On 10/10/2017; WBC 9.9, hemoglobin 12.0, hematocrit 36.7, and platelet count 237,000. Liver function testing was normal. Protein was negative in the urine. On 10/11/2017; WBC 12.7, hemoglobin 10.4, hematocrit 32.0, and platelet count 221,000. DISCHARGE INSTRUCTIONS: 1. Discharge to home. 2. Follow up with Dr. Bah in the office next week for wound check and to have the infant checked. 3. Follow up with Dr. Roe at 6 week checkup or sooner if problems develop. 4. No douching, tampons, or intercourse for 6 weeks. 5. Discharge instructions including activity, followup, medications, wound care, and diet were discussed with the patient. She understands these and is willing to comply with these. 6. Motrin 800 mg 1 tab t.i.d. p.r.n. for pain. 7. Percocet 1 to 2 tablets t.i.d. p.r.n. for pain. DISCHARGE DIAGNOSES: 1. A 38 and 6/7 week intrauterine . 2. 5, para 4 female. 3. Intermittent gestational hypertension. 4. Concern regarding possible decreased intrauterine growth. 5. Induction of labor with Pitocin. 6. Non-reassuring heart rate pattern. 7. Arrest of labor. 8. Persistent occiput posterior position. 9. Unsuccessful induction. 10.Primary low transverse section of a viable female weighing 6 pounds 10 ounces, 18-3/4 inches long with scores of 8 at 1 minute, 9 at 5 minutes. 11.Spinal anesthesia with Duramorph. 12.Acute anemia secondary to blood loss. [facility] /[id number]
== END 2017-10-13 12:00 | disposition home or self-care (01) | DRG 765 ==
LOC: DL.OBCHECK 18:03 → DL.OB 18:14 → OBSVTOIN 19:07 → DL.OB 19:07 → DL.MS 10-10 18:55
PROVIDERS: ADMIT Family Medicine; ATTEND Family Medicine
PROC: 10D00Z1 Extraction of Products of Conception, Low, Open Approach (ICD-10-PCS; principal; 2017-10-10)
PROC: 3E033VJ Introduction of Other Hormone into Peripheral Vein, Percutaneous Approach (ICD-10-PCS; 2017-10-10)
PROC: 10907ZC Drainage of Amniotic Fluid, Therapeutic from Products of Conception, Via Natural or Artificial Opening (ICD-10-PCS; 2017-10-10)
PROC: 3E0S3GC Introduction of Other Therapeutic Substance into Epidural Space, Percutaneous Approach (ICD-10-PCS; 2017-10-10)
PROC: 10H07YZ Insertion of Other Device into Products of Conception, Via Natural or Artificial Opening (ICD-10-PCS; 2017-10-10)
DX: O76 Abnormality in fetal heart rate and rhythm complicating labor and delivery (principal); O36.5930 Maternal care for other known or suspected poor fetal growth, third trimester, not applicable or unspecified; O13.4 Gestational [pregnancy-induced] hypertension without significant proteinuria, complicating childbirth; Z37.0 Single live birth; Z3A.38 38 weeks gestation of pregnancy; O26.893 Other specified pregnancy related conditions, third trimester; G44.209 Tension-type headache, unspecified, not intractable; O61.0 Failed medical induction of labor; O99.02 Anemia complicating childbirth; D64.9 Anemia, unspecified; O32.8XX0 Maternal care for other malpresentation of fetus, not applicable or unspecified
CPT/HCPCS: 01961; 01967; 36415; 59025; 80305-QW; 81003; 82565; 83615; 84450; 84460; 84520; 84550; 85027; A9270-GY; J0171; J0690; J1885; J2274; J2300; J2310; J2405; J2590; J3010; J7120

== ENCOUNTER 2018-05-19 13:27 | Emergency (ER) | payer MEDICAID ==
[2018-05-19 14:06] VITALS: BP 138/83
[2018-05-19] MEDS ORDERED: Clindamycin HCl 150 MG Cap PO ONE (14:47)
[2018-05-19] MEDS ORDERED: Lidocaine 2% Viscous Solution 15 ML Cup PO ONE (14:47)
--- NOTE | 2018-05-19 14:52 | EDM.PDOC ---
Scribed by Jennifer Agarwal 05/19/18 [id number] for Jose Antonio Powers PA ED HPI GENERAL MEDICAL PROBLEM - General Chief Complaint: ENT Problem Stated Complaint: TOOTH PAIN/SWELLING Time Seen by Provider: 05/19/18 14:35 Source of Information: Reports: Patient, RN, RN Notes Reviewed History Limitations: Reports: No Limitations - History of Present Illness INITIAL COMMENTS - FREE TEXT/NARRATIVE: Patient states filling fell out yesterday between 5 and 5:30 p.m. She noticed face is swollen today. Onset Date: 05/18/18 Duration: Getting Worse Location: Reports: Other (tooth) Quality: Reports: Ache Severity: Moderate Improves with: Reports: None Worsens with: Reports: None Associated Symptoms: Reports: No Other Symptoms Right Face/Facial Pain Score (Numeric/FACES): 10 - Related Data Allergies Allergy/AdvReac Type Severity Reaction Status Date / Time cyclobenzaprine Allergy Hives Verified 05/19/18 14:06 [Cyclobenzaprine] tramadol Allergy Rash Verified 05/19/18 14:06 Home Meds: Home Meds Acetaminophen 2 tab PO Q4H PRN 04/08/16 [History] Vit Calc,Iron,Folic [ Vitamins] 1 tab PO DAILY 10/01/17 [ History] Past Medical History - Past Health History Medical/Surgical History: Denies Medical/Surgical History HEENT History: Reports: None Cardiovascular History: Reports: None Respiratory History: Reports: None Gastrointestinal History: Reports: None Genitourinary History: Reports: None [employer] History: Reports: Musculoskeletal History: Reports: Back Pain, Chronic, Fracture, Other (See Below ) Other Musculoskeletal History: degenerative disc disease, hx rib fracture Neurological History: Reports: None Psychiatric History: Reports: Other (See Below) Other Psychiatric History: hx marajuana use Endocrine/Metabolic History: Reports: None Hematologic History: Reports: None Immunologic History: Reports: None Oncologic (Cancer) History: Reports: None Dermatologic History: Reports: None - Infectious Disease History Infectious Disease History: Reports: Chicken Pox, Other (See Below) Other Infectious Disease History: 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 - Past Surgical History Head Surgeries/Procedures: Reports: None Female Surgical History: Reports: None Social & Family History - Family History Family Medical History: Noncontributory - Tobacco Use Smoking Status *Q: Current Every Day Smoker Years of Tobacco use: 1 Packs/Tins Daily: 0.5 Second Hand Smoke Exposure: No - Caffeine Use Caffeine Use: Reports: Soda Other Caffeine Use: "couple a day" - Recreational Drug Use Recreational Drug Use: No - Living Situation & Occupation Living situation: Reports: with Family ED ROS ENT - Review of Systems Review Of Systems: ROS reveals no pertinent complaints other than HPI. ED EXAM, ENT - Physical Exam Exam: See Below Exam Limited By: No Limitations General Appearance: Alert, WD/WN, No Apparent Distress Eye Exam: Bilateral Eye: EOMI, Normal Inspection, PERRL Ears: Normal External Exam, Normal Canal, Hearing Grossly Normal, Normal TMs Nose: Normal Inspection, Normal Mucousa, No Blood Mouth/Throat: Other (right fron tooth root exposed. ) Head: Facial Swelling (right) Neck: Normal Inspection, Supple, Non-Tender, Full Range of Motion Respiratory/Chest: No Respiratory Distress, Lungs Clear, Normal Breath Sounds, No Accessory Muscle Use, Chest Non-Tender Cardiovascular: Normal Peripheral Pulses, Regular Rate, Rhythm, No Edema, No Gallop, No JVD, No Murmur, No Rub GI/Abdominal: Normal Bowel Sounds, Soft, Non-Tender, No Organomegaly, No Distention, No Abnormal Bruit, No Mass (Female) Exam: Deferred Rectal (Female) Exam: Deferred Back: Normal Inspection, Full Range of Motion Extremities: Normal Inspection, Normal Range of Motion, Non-Tender, No Pedal Edema, Normal Capillary Refill Neurological: Alert, Oriented, CN II-XII Intact, Normal Cognition, Normal Gait, Normal Reflexes, No Motor/Sensory Deficits Psychiatric: Normal Affect, Normal Mood Skin: Warm, Dry, Intact, Normal Color, No Rash Lymphatic: No Adenopathy Course - Vital Signs Last Recorded V/S: Last Vital Signs Temp 36.6 C 05/19/18 14:02 Pulse 86 05/19/18 14:02 Resp 16 05/19/18 14:02 BP 138/83 05/19/18 14:02 Pulse Ox 99 05/19/18 14:02 - Orders/Labs/Meds Meds: Medications Discontinued Medications Generic Name Dose Route Start Last Admin Trade Name Freq PRN Reason Stop Dose Admin Clindamycin HCl 300 mg 05/19/18 14:47 Cleocin PO 05/19/18 14:48 ONETIME ONE Lidocaine HCl 15 ml 05/19/18 14:47 Xylocaine 2% Viscous PO 05/19/18 14:48 ONETIME ONE Departure - Departure Time of Disposition: 14:50 Disposition: Home, Self-Care 01 Condition: Fair Clinical Impression: Dental abscess, Dental caries - Discharge Information *PRESCRIPTION DRUG MONITORING PROGRAM REVIEWED*: Not Applicable *COPY OF PRESCRIPTION DRUG MONITORING REPORT IN PATIENT ANURAG: Not Applicable Instructions: Dental Abscess, [id number] Forms: ED Department Discharge Care Plan Goals: The patient was advised of the examination results during the visit. The patient was given a dose of Viscous Lidocaine and a dose of Clindamycin while in the ED. The patient was also given a script for Clindamycin (300 mg) to take 1 by mouth 4 times per day for 10 days and Viscous Lidocaine 2% #100 mL to use 5 -10 mL on a cottonball applied to area every 6 hours as needed. The patient was encouraged to follow-up with a dentist early this week for continued evaluation and further management. If the patient has any additional symptoms or concerns, the patient should either follow-up with her primary care facility or return to the emergency department. I have read and agree with the documentation that has been completed regarding this visit. By signing this record, I attest that the documentation was completed in my physical presence and is an accurate record of the encounter.
== END 2018-05-19 15:04 | disposition home or self-care (01) ==
LOC: DL.ED 13:27
DX: K04.7 Periapical abscess without sinus (principal); F17.210 Nicotine dependence, cigarettes, uncomplicated; Z88.8 Allergy status to other drugs, medicaments and biological substances; Z88.5 Allergy status to narcotic agent
CPT/HCPCS: 99282; A9270-GY

== ENCOUNTER 2019-11-16 23:24 | Emergency (ER) | payer MEDICAID ==
[2019-11-16] MEDS ORDERED: Ketorolac 30 MG/ML SDV IVPUSH ONE (23:30)
--- NOTE | 2019-11-16 23:33 | EDM.PDOC ---
ED HPI GENERAL MEDICAL PROBLEM - General Chief Complaint: General Stated Complaint: AMBULANCE Time Seen by Provider: 11/16/19 23:30 Source of Information: Reports: Patient History Limitations: Reports: No Limitations - History of Present Illness INITIAL COMMENTS - FREE TEXT/NARRATIVE: about 5pm today was driving and turned to roll up back window felt sharp pain right side and back gotten worse since. even hurts when she breathes. Right Posterior Chest Pain Score (Numeric/FACES): 10 - Related Data Allergies Allergy/AdvReac Type Severity Reaction Status Date / Time cyclobenzaprine Allergy Hives Verified 11/16/19 23:46 [Cyclobenzaprine] tramadol Allergy Rash Verified 11/16/19 23:46 Home Meds: Home Meds Acetaminophen 2 tab PO Q4H PRN 04/08/16 [History] Vit Calc,Iron,Folic [ Vitamins] 1 tab PO DAILY 10/01/17 [History] Past Medical History - Past Health History Medical/Surgical History: Denies Medical/Surgical History HEENT History: Reports: None Cardiovascular History: Reports: None Respiratory History: Reports: None Gastrointestinal History: Reports: None Genitourinary History: Reports: None, Other (See Below) Other Genitourinary History: Previous C/S 2018 [employer] History: Reports: Musculoskeletal History: Reports: Back Pain, Chronic, Fracture, Other (See Below) Other Musculoskeletal History: degenerative disc disease, hx rib fracture, pinched nerve Neurological History: Reports: None Psychiatric History: Reports: None, Other (See Below) Other Psychiatric History: hx marajuana use Endocrine/Metabolic History: Reports: None Hematologic History: Reports: None Immunologic History: Reports: None Oncologic (Cancer) History: Reports: None Dermatologic History: Reports: None - Infectious Disease History Infectious Disease History: Reports: Chicken Pox, Other (See Below) Other Infectious Disease History: 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 - Past Surgical History Head Surgeries/Procedures: Reports: None Female Surgical History: Reports: None Social & Family History - Family History Family Medical History: Noncontributory - Caffeine Use Caffeine Use: Reports: Soda Other Caffeine Use: "couple a day" - Living Situation & Occupation Living situation: Reports: with Family ED ROS GENERAL - Review of Systems Review Of Systems: Comprehensive ROS is negative, except as noted in HPI. ED EXAM, GENERAL - Physical Exam Exam: See Below Exam Limited By: No Limitations General Appearance: Alert, WD/WN, Mild Distress, Moderate Distress, Other (discomfort) Ears: Hearing Grossly Normal Throat/Mouth: Normal Voice, No Airway Compromise Head: Atraumatic Neck: Non-Tender, Full Range of Motion Respiratory/Chest: No Respiratory Distress Cardiovascular: Regular Rate, Rhythm GI/Abdominal: Tender, Other (RUQ region). No: Rigid, Rebound Neurological: Alert, Oriented, Normal Cognition, No Motor/Sensory Deficits Psychiatric: Tearful Skin Exam: Warm, Dry, Normal Color Lymphatic: No Adenopathy Course - Vital Signs Last Recorded V/S: Last Vital Signs Temp 37.0 C 11/16/19 23:33 Pulse 100 11/16/19 23:33 Resp 21 H 11/16/19 23:33 BP 133/104 H 11/16/19 23:33 Pulse Ox 96 11/16/19 23:33 - Orders/Labs/Meds Orders: Active Orders 24 hr Category Date Time Status CULTURE URINE [RM] Stat Lab 11/17/19 00:50 Received Labs: Laboratory Tests 11/17/19 11/17/19 11/17/19 Range/Units 00:15 00:15 00:15 WBC 15.5 H (5.0-10.0) 10^3/uL RBC 4.92 (4.2-5.4) 10^6/uL Hgb 12.9 D (12.0-16.0) g/dL Hct 39.3 (37.0-47.0) % MCV 79.9 L (80-100) fL MCH 26.2 L (27.0-34.0) pg MCHC 32.8 L (33.0-35.0) g/dL Plt Count 315 (150-450) 10^3/uL Neut % (Auto) 77.7 H (42.2-75.2) % Lymph % (Auto) 13.9 L (20.5-50.1) % Spencer % (Auto) 6.6 (2-8) % Eos % (Auto) 1.5 (1.0-3.0) % Baso % (Auto) 0.3 (0.0-1.0) % Sodium 137 (136-145) mmol/L Potassium 3.7 (3.5-5.1) mmol/L Chloride 100 (98-107) mmol/L Carbon Dioxide 27 (21-32) mmol/L Anion Gap 13.7 H (7-13) mEq/L BUN 11 (7-18) mg/dL Creatinine 0.87 (0.55-1.02) mg/dL Est Cr Clr Drug Dosing 91.11 mL/min Estimated GFR (MDRD) > 60 BUN/Creatinine Ratio 12.6 (No establ ref range) Glucose 105 H (74-99) mg/dL Calcium 8.4 L (8.5-10.1) mg/dL Total Bilirubin 0.5 (0.2-1.0) mg/dL AST 12 L (15-37) U/L ALT 20 (14-59) U/L Alkaline Phosphatase 88 (46-116) U/L Total Protein 7.3 (6.4-8.2) g/dL Albumin 3.7 (3.4-5.0) g/dL Globulin 3.6 Albumin/Globulin Ratio 1.0 Amylase 25 (25-115) U/L Lipase 41 L (73-393) U/L HCG, Qual Negative Urine Color (YELLOW) Urine Appearance (CLEAR) Urine pH (5.0-9.0) Ur Specific Warren (1.005-1.030) Urine Protein (NEGATIVE) Urine Glucose (UA) (NEGATIVE) Urine Ketones (NEGATIVE) Urine Occult Blood (NEGATIVE) Urine Nitrite (NEGATIVE) Urine Bilirubin (NEGATIVE) Urine Urobilinogen (0.2-1.0) mg/dL Ur Leukocyte Esterase (NEGATIVE) Urine RBC /HPF Urine WBC (0-5/HPF) /HPF Ur Epithelial Cells (NOT SEEN) /HPF Amorphous Sediment (NOT SEEN) /HPF Urine Bacteria (0-FEW/HPF) /HPF Urine Mucus (NOT SEEN) /LPF Urine Opiates Screen (NEGATIVE) Ur Oxycodone Screen (NEGATIVE) Urine Methadone Screen (NEGATIVE) Ur Barbiturates Screen (NEGATIVE) U Tricyclic Antidepress (NEGATIVE) Ur Phencyclidine Scrn (NEGATIVE) Ur Amphetamine Screen (NEGATIVE) U Methamphetamines Scrn (NEGATIVE) Urine MDMA Screen (NEGATIVE) U Benzodiazepines Scrn (NEGATIVE) Urine Cocaine Screen (NEGATIVE) U Marijuana (THC) Screen (NEGATIVE) 11/17/19 11/17/19 Range/Units 00:50 00:50 WBC (5.0-10.0) 10^3/uL RBC (4.2-5.4) 10^6/uL Hgb (12.0-16.0) g/dL Hct (37.0-47.0) % MCV (80-100) fL MCH (27.0-34.0) pg MCHC (33.0-35.0) g/dL Plt Count (150-450) 10^3/uL Neut % (Auto) (42.2-75.2) % Lymph % (Auto) (20.5-50.1) % Spencer % (Auto) (2-8) % Eos % (Auto) (1.0-3.0) % Baso % (Auto) (0.0-1.0) % Sodium (136-145) mmol/L Potassium (3.5-5.1) mmol/L Chloride (98-107) mmol/L Carbon Dioxide (21-32) mmol/L Anion Gap (7-13) mEq/L BUN (7-18) mg/dL Creatinine (0.55-1.02) mg/dL Est Cr Clr Drug Dosing mL/min Estimated GFR (MDRD) BUN/Creatinine Ratio (No establ ref range) Glucose (74-99) mg/dL Calcium (8.5-10.1) mg/dL Total Bilirubin (0.2-1.0) mg/dL AST (15-37) U/L ALT (14-59) U/L Alkaline Phosphatase (46-116) U/L Total Protein (6.4-8.2) g/dL Albumin (3.4-5.0) g/dL Globulin Albumin/Globulin Ratio Amylase (25-115) U/L Lipase (73-393) U/L HCG, Qual Urine Color Dark yellow (YELLOW) Urine Appearance Slightly cloudy (CLEAR) Urine pH 7.5 (5.0-9.0) Ur Specific Warren 1.025 (1.005-1.030) Urine Protein 100 H (NEGATIVE) Urine Glucose (UA) Negative (NEGATIVE) Urine Ketones Negative (NEGATIVE) Urine Occult Blood Large H (NEGATIVE) Urine Nitrite Negative (NEGATIVE) Urine Bilirubin Negative (NEGATIVE) Urine Urobilinogen 0.2 (0.2-1.0) mg/dL Ur Leukocyte Esterase Moderate H (NEGATIVE) Urine RBC 30-40 H /HPF Urine WBC 50-75 H (0-5/HPF) /HPF Ur Epithelial Cells Few (NOT SEEN) /HPF Amorphous Sediment Few (NOT SEEN) /HPF Urine Bacteria Rare (0-FEW/HPF) /HPF Urine Mucus Few H (NOT SEEN) /LPF Urine Opiates Screen Negative (NEGATIVE) Ur Oxycodone Screen Negative (NEGATIVE) Urine Methadone Screen Negative (NEGATIVE) Ur Barbiturates Screen Negative (NEGATIVE) U Tricyclic Antidepress Negative (NEGATIVE) Ur Phencyclidine Scrn Negative (NEGATIVE) Ur Amphetamine Screen Positive H (NEGATIVE) U Methamphetamines Scrn Positive H (NEGATIVE) Urine MDMA Screen Positive H (NEGATIVE) U Benzodiazepines Scrn Negative (NEGATIVE) Urine Cocaine Screen Negative (NEGATIVE) U Marijuana (THC) Screen Positive H (NEGATIVE) Meds: Medications Discontinued Medications Generic Name Dose Route Start Last Admin Trade Name Freq PRN Reason Stop Dose Admin Dicyclomine HCl 20 mg 11/17/19 02:15 Bentyl IM 11/17/19 02:16 ONETIME ONE Iopamidol 100 ml 11/17/19 01:01 11/17/19 01:22 [id number] (61%) IVPUSH 11/17/19 01:02 100 ml ONETIME ONE Administration Ketorolac Tromethamine 30 mg 11/16/19 23:30 11/16/19 23:35 Toradol IVPUSH 11/16/19 23:31 30 mg ONETIME ONE Administration - Re-Assessments/Exams Free Text/Narrative Re-Assessment/Exam: 11/17/19 02:17 results discussed with pt. Departure - Departure Time of Disposition: 02:18 Disposition: Home, Self-Care 01 Condition: Good Clinical Impression: Methamphetamine abuse Abdominal pain Qualifiers: Abdominal location: right upper quadrant Qualified Code(s): R10.11 - Right upper quadrant pain - Discharge Information Instructions: Abdominal Pain, Adult, [id number] Forms: ED Department Discharge Additional Instructions: 1) avoid solid foods next 24 hours 2) follow up at clinic rx given; bentyl 10mg bid prn cramps x 12 Sepsis Event Note (ED) - Focused Exam Vital Signs: Vital Signs Temp Pulse Resp BP Pulse Ox 11/16/19 23:33 37.0 C 100 21 H 133/104 H 96 - My Orders Last 24 Hours: My Active Orders 11/17/19 00:50 CULTURE URINE [RM] Stat - Assessment/Plan Last 24 Hours: My Active Orders 11/17/19 00:50 CULTURE URINE [RM] Stat
[2019-11-16 23:44] VITALS: BP 133/104; PULSE 100
[2019-11-17 00:40] LABS: ANION GAP 13.7 mEq/L (7-13); CHLORIDE,CL 100 mmol/L (98-107); SODIUM,NA 137 mmol/L (136-145)
[2019-11-17] MEDS ORDERED: Iopamidol 612 MG/ML 100 ML Bottle IVPUSH ONE (01:01)
--- NOTE | 2019-11-17 02:11 | CT ---
PROCEDURE INFORMATION: Exam: CT Abdomen And Pelvis With Contrast Exam date and time: 11/17/2019 1:36 AM Age: 29 years old Clinical indication: Other: Pain; Additional info: Wbc 15,500. Ruq pain TECHNIQUE: Imaging protocol: Computed tomography of the abdomen and pelvis with intravenous contrast. Radiation optimization: All CT scans at this facility use at least one of these dose optimization techniques: automated exposure control; mA and/or kV adjustment per patient size (includes targeted exams where dose is matched to clinical indication); or iterative reconstruction. Contrast material: [id number]; Contrast volume: 100 ml; Contrast route: INTRAVENOUS (IV); COMPARISON: No relevant prior studies available. FINDINGS: Liver: Normal. No mass. Gallbladder and bile ducts: Normal. No calcified stones. No ductal dilation. Pancreas: Normal. No ductal dilation. Spleen: Normal. No splenomegaly. Adrenals: Normal. No mass. Kidneys and ureters: Normal. No hydronephrosis. Stomach and bowel: Mildly dilated loops of small bowel throughout the mid abdomen suggestive of an ileus. Appendix: No evidence of appendicitis. Intraperitoneal space: Unremarkable. No free air. No significant fluid collection. Vasculature: Unremarkable. No abdominal aortic aneurysm. Lymph nodes: Unremarkable. No enlarged lymph nodes. Bladder: Unremarkable as visualized. Reproductive: Unremarkable as visualized. Bones/joints: Unremarkable. No acute fracture. Soft tissues: Unremarkable. IMPRESSION: 1. No acute findings. 2. Normal appendix right lower quadrant. 3. Fluid-filled loops of small bowel throughout the mid abdomen suggestive of an ileus. Please correlate clinically for a gastroenteritis
[2019-11-17] MEDS ORDERED: Dicyclomine 20 MG/2 ML SDV IM ONE (02:15)
== END 2019-11-17 02:46 | disposition home or self-care (01) ==
LOC: DL.ED 23:24
DX: R10.11 Right upper quadrant pain (principal); F15.10 Other stimulant abuse, uncomplicated; Z88.5 Allergy status to narcotic agent; Z88.8 Allergy status to other drugs, medicaments and biological substances
CPT/HCPCS: 36415; 74177; 80053; 80305; 81001; 82150; 83690; 84703; 85025; 87086; 96372; 96374; 99285; J0500; J1885; Q9967